=== PATIENT | male | born 1960 | race Caucasian/White ===

== ENCOUNTER 2019-06-01 13:07 | Emergency (ER) | payer MEDICARE, OTHER ==
[2019-06-01] MEDS ORDERED: Sodium Chloride 0.9% 10 ML Syringe FLUSH PRN (13:15)
[2019-06-01] MEDS ORDERED: HYDROmorphone 1 MG/ML Syringe IVPUSH ONE ×3 (13:15→15:05)
[2019-06-01] MEDS ORDERED: Lidocaine 1% 30 ML SDV INJECT ONE (13:16)
[2019-06-01] MEDS ORDERED: LORazepam 2 MG/ML SDV IVPUSH ONE (13:41)
[2019-06-01] MEDS ORDERED: LORazepam 2 MG/ML SDV ONE (13:45)
--- NOTE | 2019-06-01 14:56 | EDM.PDOC ---
ED HPI GENERAL MEDICAL PROBLEM - General Chief Complaint: Upper Extremity Injury/Pain Stated Complaint: RIGHT ARM Time Seen by Provider: 06/01/19 13:10 Source of Information: Reports: Patient History Limitations: Reports: No Limitations - History of Present Illness INITIAL COMMENTS - FREE TEXT/NARRATIVE: Pt. presents to ER with complaints of pain isolated to R shoulder post fall. Pt. states that he tripped trying to avoid stepping on a cat and fell. He states that he tried to catch himself with his R arm and felt a crack. Denies striking his head. No neck pain. Denies any numbness/tingling in the extremity. Pt. states that he has never dislocated the joint in the past. Pt. states that his last oral intake was breakfast at 0630 this AM. He states that he has never had problems with anesthesia in the past that he is aware of. Onset: Today Onset Date: 06/01/19 Location: Reports: Upper Extremity, Right Quality: Reports: Ache, Sharp Severity: Severe Improves with: Reports: Rest Worsens with: Reports: Movement Associated Symptoms: Denies: Confusion, Chest Pain, Cough, Fever/Chills, Nausea/ Vomiting, Shortness of Breath, Weakness Right Upper Arm Pain Score (Numeric/FACES): 10 - Related Data Allergies Allergy/AdvReac Type Severity Reaction Status Date / Time No Known Allergies Allergy Verified 06/01/19 13:28 Home Meds: Home Meds . [No Known Home Meds] 06/01/19 [History] Past Medical History - Past Health History Medical/Surgical History: Denies Medical/Surgical History Social & Family History - Tobacco Use Smoking Status *Q: Unknown Ever Smoked Review of Systems - Review of Systems Review Of Systems: See Below Constitutional: Reports: No Symptoms Eyes: Reports: No Symptoms Ears: Reports: No Symptoms Nose: Reports: No Symptoms Mouth/Throat: Reports: No Symptoms Respiratory: Reports: No Symptoms Cardiovascular: Reports: No Symptoms GI/Abdominal: Reports: No Symptoms Genitourinary: Reports: No Symptoms Musculoskeletal: Reports: Joint Pain (R shoulder) Skin: Reports: No Symptoms Neurological: Reports: No Symptoms ED EXAM, GENERAL - Physical Exam Exam: See Below Exam Limited By: No Limitations General Appearance: Alert, WD/WN, Anxious, Severe Distress Head: Atraumatic, Normocephalic Neck: Normal Inspection, Supple, Non-Tender, Full Range of Motion Respiratory/Chest: No Respiratory Distress, Lungs Clear, Normal Breath Sounds, No Accessory Muscle Use, Chest Non-Tender Cardiovascular: Normal Peripheral Pulses, Regular Rate, Rhythm, No Edema, No Murmur Extremities: Other (Obvious anterior R shoulder dislocation-hollowing out of glenohumeral space laterally, severe pain with manipulation of the shoulder.) Neurological: Alert, Oriented, CN II-XII Intact, Normal Cognition, Normal Gait, Normal Reflexes, No Motor/Sensory Deficits Psychiatric: Anxious Skin Exam: Warm, Dry, Intact, Normal Color, No Rash ED TRAUMA EXTREMITY PROCEDURES - Joint Reduction Right Shoulder Sedation: Hematoma/Fracture Block Local Anesthesia - Lidocaine (Xylocaine): 1% Plain Local Anesthetic Volume: Other (15) Pre-Procedure NV Status: Normal Post-Procedure NV Status: Normal Post-Reduction Imaging: Unacceptably Reduced Joint Reduction Complications: No Progress/Comments: Pt. was given dilaudid 1 mg IV and ativan 1 mg IV. 15ml 1% lidocaine was injected intra-articularly into the R lateral shoulder. Pt. did report some improvement in discomfort. Initially attempted external rotation to reduce the shoulder which was unsuccessful. Pt. was made to lay prone and Danny method was performed with scapular manipulation. A total of 30# of counterweight was applied for approx. 20 min. Pt. was reporting numbness/tingling in fingers of the R hand so this was discontinued. Pt. was made to lay supine and attempted external rotation method again which was unsuccessful. Course - Vital Signs Last Recorded V/S: Last Vital Signs Temp 37.2 C 06/01/19 13:10 Pulse 83 06/01/19 14:10 Resp 16 06/01/19 14:10 BP 135/85 06/01/19 14:10 Pulse Ox 95 06/01/19 14:10 - Orders/Labs/Meds Orders: Active Orders 24 hr Category Date Time Status Shoulder 1V Rt [CR] Stat Exams 06/01/19 13:19 Taken Shoulder 1V Rt [CR] Stat Exams 06/01/19 14:09 Taken Sodium Chloride 0.9% [Saline Flush] Med 06/01/19 13:15 Active 10 ml FLUSH ASDIRECTED PRN Peripheral IV Insertion Adult [OM.PC] Routine Oth 06/01/19 13:15 Ordered Medication Orders Sodium Chloride (Saline Flush) 10 ml FLUSH ASDIRECTED PRN PRN Reason: Keep Vein Open Meds: Medications Generic Name Dose Route Start Last Admin Trade Name Freq PRN Reason Stop Dose Admin Sodium Chloride 10 ml 06/01/19 13:15 Saline Flush FLUSH ASDIRECTED PRN Keep Vein Open Discontinued Medications Generic Name Dose Route Start Last Admin Trade Name Freq PRN Reason Stop Dose Admin Hydromorphone HCl 1 mg 06/01/19 13:15 06/01/19 13:23 Dilaudid IVPUSH 06/01/19 13:16 1 mg ONETIME ONE Administration Hydromorphone HCl 0.5 mg 06/01/19 13:57 06/01/19 14:02 Dilaudid IVPUSH 06/01/19 13:58 0.5 mg ONETIME ONE Administration Lidocaine HCl 30 ml 06/01/19 13:16 06/01/19 13:31 Xylocaine-Mpf 1% INJECT 06/01/19 13:17 30 ml ONETIME ONE Administration Lorazepam 1 mg 06/01/19 13:41 06/01/19 13:41 Ativan IVPUSH 06/01/19 13:42 1 mg STAT ONE Administration Lorazepam Confirm 06/01/19 13:45 06/01/19 13:42 Ativan Administered 06/01/19 13:46 Not Given Dose [address] .[address] [facility] ONE - Radiology Interpretation Free Text/Narrative:: Severe anterior shoulder dislocation of R shoulder. Departure - Departure Time of Disposition: 15:10 Disposition: DC/Tfer to Acute Hospital 02 Clinical Impression: Shoulder dislocation - Discharge Information Referrals: PCP,Unknown [Primary Care Provider] - Sepsis Event Note - Evaluation Sepsis Screening Result: No Definite Risk - Focused Exam Vital Signs: Vital Signs Temp Pulse Resp BP Pulse Ox 06/01/19 14:10 83 16 135/85 95 06/01/19 13:46 84 14 141/94 H 94 L 06/01/19 13:10 37.2 C 92 18 152/109 H 95 Date Exam was Performed: 06/01/19 Time Exam was Performed: 14:49 - Problem List Review Problem List Initiated/Reviewed/Updated: Yes - My Orders Last 24 Hours: My Active Orders 06/01/19 13:15 Sodium Chloride 0.9% [Saline Flush] 10 ml FLUSH ASDIRECTED PRN Peripheral IV Insertion Adult [OM.PC] Routine 06/01/19 13:19 Shoulder 1V Rt [CR] Stat 06/01/19 14:09 Shoulder 1V Rt [CR] Stat - Assessment/Plan Last 24 Hours: My Active Orders 06/01/19 13:15 Sodium Chloride 0.9% [Saline Flush] 10 ml FLUSH ASDIRECTED PRN Peripheral IV Insertion Adult [OM.PC] Routine 06/01/19 13:19 Shoulder 1V Rt [CR] Stat 06/01/19 14:09 Shoulder 1V Rt [CR] Stat Plan: Pt. will be transported to [facility] to undergo conscious sedation and subsequent reduction. There is no anesthesia staff occupational medicine specialist, and the ER is staffed only by one RN and myself. Pt. will be transported via [facility] ground ambulance. He can receive IV dilaudid for pain control. All questions were answered. Dr. Rudolph is accepting the patient in the ER.
--- NOTE | 2019-06-01 16:34 | CR ---
[id number] RAD/RAD Shoulder Right 1V EXAM: RAD Shoulder Right 1V INDICATION: SHOULDER DISLOCATION. COMPARISON: None. DISCUSSION: Limited exam demonstrating anterior dislocation of the humeral head relative to the glenoid. Mild acromioclavicular osteoarthritis. No fracture is identified on this single view. IMPRESSION: 1. Anterior glenohumeral dislocation. Andi Miguel MD 06/01/19 [id number] Thank you for allowing us to participate in the care of your patient.
--- NOTE | 2019-06-01 16:34 | CR ---
[id number] RAD/RAD Shoulder Right 1V EXAM: RAD Shoulder Right 1V INDICATION: POST REDUCTION. COMPARISON: June 01, 2019. DISCUSSION: Persistent anterior dislocation of the humeral head relative to the glenoid. No fracture or other osseous abnormality is identified on this single view. IMPRESSION: 1. There is persistent anterior dislocation of the shoulder. Andi Miguel MD 06/01/19 [id number] Thank you for allowing us to participate in the care of your patient.
== END 2019-06-01 15:30 | disposition short-term general hospital (02) ==
LOC: VM.ED 13:07
DX: S43.014A Anterior dislocation of right humerus, initial encounter (principal); W01.0XXA Fall on same level from slipping, tripping and stumbling without subsequent striking against object, initial encounter
CPT/HCPCS: 23650; 73020-RT; 96374; 96375; 96376; 99283-GF; 99285-25; J1170; J2001; J2060

== ENCOUNTER 2021-03-08 19:50 | Emergency (ER) | payer OTHER, MEDICARE ==
--- NOTE | 2021-03-08 20:32 | EDM.PDOC ---
ED HPI GENERAL MEDICAL PROBLEM - General Stated Complaint: UPPER LEFT EYEBROW CUT Time Seen by Provider: 03/08/21 20:06 Source of Information: Reports: Patient History Limitations: Reports: No Limitations - History of Present Illness INITIAL COMMENTS - FREE TEXT/NARRATIVE: Patient presents tot the ED for left eyebrow laceration while at work. He was washing dishes in the kitchen at the [employer] and struck his left eye brow area on a dish rack at standing height. no loc, happend about 45 minutes prior to arrival. Is feeling fine, no headache or loc, tetanus is up to date. no vision changes - Related Data Allergies Allergy/AdvReac Type Severity Reaction Status Date / Time No Known Allergies Allergy Verified 06/01/19 13:28 Home Meds: Home Meds . [No Known Home Meds] 06/01/19 [History] Past Medical History - Past Health History Medical/Surgical History: Denies Medical/Surgical History - Past Surgical History Musculoskeletal Surgical History: Reports: Joint Replacement Social & Family History - Recreational Drug Use Recreational Drug Use: No Drug Use in Last 12 Months: No ED ROS GENERAL - Review of Systems Review Of Systems: See Below Constitutional: Reports: No Symptoms HEENT: Reports: No Symptoms Respiratory: Reports: No Symptoms Cardiovascular: Reports: No Symptoms, Palpitations Endocrine: Reports: No Symptoms GI/Abdominal: Reports: No Symptoms : Reports: No Symptoms Musculoskeletal: Reports: No Symptoms Skin: Reports: Wound (left eyebrow) Neurological: Reports: No Symptoms. Denies: Confusion, Headache, Pre-Existing Deficit, Seizure, Trouble Speaking, Difficulty Walking, Change in Speech ED EXAM, HEAD INJURY - Physical Exam Exam: See Below Exam Limited By: No Limitations General Appearance: Alert, WD/WN, No Apparent Distress Head: Facial Lacerations (left eyebrow 3.5 cm v shaped subcutaneous), Other (echymosis of the let upper eyelid with swelling, no crepitus) Nexus Criteria: No: Posterior, Midline Cervical Tenderness, Evidence of Intoxication, Altered Level of Consciousness, Focal Neurological Deficit, Painful Distraction Injuries Eyes: Bilateral Eye: EOMI, PERRL Ears: Normal External Exam, Normal Canal, Hearing Grossly Normal, Normal TMs Nose: Normal Inspection, Normal Mucousa Throat/Mouth: Normal Inspection, Normal Voice, No Airway Compromise Neck: Non-Tender, Full Range of Motion, Normal Alignment Respiratory: No Respiratory Distress, Lungs Clear Cardiovascular: Normal Peripheral Pulses, Regular Rate, Rhythm Neurologic: No Motor/Sensory Deficits, Alert, Normal Mood/Affect, Oriented x 3, Other (no nystagmus, normal speech, normal gait) ED LACERATION/WOUND & SAMIRA PROC - Laceration/Wound Repair Face Lac/wound length in cm: 3.5 (left eyebrow) Appearance: Subcutaneous, Other (v shaped) Distal NVT: Neuro & Vascular Intact Anesthetic Type: Local Local Anesthesia - Lidocaine (Xylocaine): 1% Plain Local Anesthetic Volume: 3cc Skin Prep: Saline Exploration/Debridement/Repair: Wound Explored Closed with: Sutures Suture Size: 5-0 # of Sutures: 6 Suture Type: Nylon, Interrupted Sterile Dressing Applied: None Tetanus Status Addressed: Yes (utd) Departure - Departure Time of Disposition: 20:32 Disposition: Home, Self-Care 01 Condition: Good Clinical Impression: Head injury, Eyebrow laceration - Discharge Information *PRESCRIPTION DRUG MONITORING PROGRAM REVIEWED*: Not Applicable *COPY OF PRESCRIPTION DRUG MONITORING REPORT IN PATIENT TRCAI: Not Applicable Instructions: Laceration Care, Adult, [id number], Head Injury, Adult, [id number] Additional Instructions: the sutures should be removed in 5 days time. You can put antibioitic ointment or vaseline on the area or a bandaid if you like. Ice the eye. you were given instructions on head injury. return to the ed for unequal pupil size, increasing headaches, new changes in coordination or vomiting.
== END 2021-03-08 21:30 | disposition home or self-care (01) ==
LOC: VM.ED 19:50
DX: S01.112A Laceration without foreign body of left eyelid and periocular area, initial encounter (principal); W22.8XXA Striking against or struck by other objects, initial encounter; Y93.G1 Activity, food preparation and clean up; Y92.120 Kitchen in nursing home as the place of occurrence of the external cause; Y99.0 Civilian activity done for income or pay
CPT/HCPCS: 12013; 99282-25